=== PATIENT | male | born 1985 | race Two or more races ===

== ENCOUNTER 2025-02-02 16:17 | Emergency (ER) | payer OTHER, SELFPAY ==
--- NOTE | 2025-02-02 16:21 | EKG_ITS ---
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
[2025-02-02 16:52] VITALS: BP 128/92; PULSE 77; RESP 18; TEMP 36.7; O2SAT 100
--- NOTE | 2025-02-02 16:59 | XR_ITS ---
Examination: PA lateral chest 2 views TECHNIQUE: Upright PA and lateral chest 2 views Date and time: February 02, 2025 1732 hours Comparison January 2016 INDICATIONS: Chest pain 3 days FINDINGS: Normal heart size. Lungs are clear. The osseous structures are intact IMPRESSION: No active disease
--- NOTE | 2025-02-02 17:00 | PD.EDRME ---
Rapid Medical Screening Exam RME Arrival date/time: 02/02/25 16:17 39-year-old male presents emergency department today for a 2-day history of generalized weakness patient reports he moves his neck he has pain in his chest and his neck and reports generalized fatigue Chief Complaint: Chest Pain Vital signs: Vital Signs Temperature 98.1 F 02/02/25 16:52 Pulse Rate 77 02/02/25 16:52 Respiratory Rate 18 02/02/25 16:52 Blood Pressure 128/92 H 02/02/25 16:52 Pulse Oximetry (%) 100 02/02/25 16:52 Oxygen Delivery Method Room Air 02/02/25 16:52
[2025-02-02] MEDS: CYCLObenzaPRINE 5 MG TABLET 10 MG PO (17:06)
[2025-02-02] MEDS: IBUPROFEN TAB 600 MG TABLET PO (17:07)
[2025-02-02 17:26] LABS: Basophils # (Auto) 0.1 Thou/mm3 (0.0-0.2); Basophils % (Auto) 2 % (0-2.5); Eosinophils # (Auto) 0.8 Thou/mm3 (0.0-0.5); Eosinophils % (Auto) 10 % (0-10); Hematocrit 42.7 % (41.0-53.0); Hemoglobin 14.6 g/dL (13.5-16.0); Immature Granulocytes % (Auto) 0 % (0-0); Immature Granulocytes Auto 0.02 Thou/mm3 (0.00-0.00); Lymphocytes # (Auto) 2.3 Thou/mm3 (1.0-4.8); Lymphocytes % (Auto) 29 % (10-50); Mean Corpuscular HGB Conc 34.2 g/dl (31.0-37.0); Mean Corpuscular Hemoglobin 29.6 pg (25.0-35.0); Mean Corpuscular Volume 87 fL (80-100); Monocytes # (Auto) 0.7 Thou/mm3 (0.0-0.8); Monocytes % (Auto) 9 % (0-12); Neutrophils % (Auto) 50 % (37-80); Nucleated Red Blood Cell % 0 /100 WBC (0); Platelet Count 372 Thou/mm3 (140-440); RDW Standard Deviation 41.1 fL (35.1-43.9); Red Blood Count 4.93 Miln/mm3 (4.50-5.90)
[2025-02-02 17:34] LABS: B-Type Natriuretic Peptide < 20 pg/mL (0-100); Partial Thromboplastin Time 28.2 Seconds (22.0-36.0)
[2025-02-02 17:36] LABS: Alanine Aminotransferase 14 U/L (10-49); Albumin, Serum 4.3 gm/dL (3.5-5.0); Albumin/Globulin Ratio 1.4 (1.2-2.2); Alkaline Phosphatase 56 U/L (46-116); Anion Gap 8 (7-16); Aspartate Amino Transferase 22 U/L (0-34); BUN/Creatinine Ratio 9 Ratio (12-20); Bilirubin,Total 1.3 mg/dL (0.3-1.2); Blood Urea Nitrogen 10 mg/dL (9-23); Calcium 8.7 mg/dL (8.3-10.6); Calcium (Corrected) 8.7 mg/dL (8.5-10.1); Carbon Dioxide 27.3 mMol/L (20.0-31.0); Chloride 105 mMol/L (98-107); Creatinine (Component) 1.1 mg/dL (0.6-1.3); Glucose 76 mg/dL (74-106); Lipase 34 U/L (12-53); Magnesium 2.1 mg/dL (1.6-2.6); Osmolality,Calculated 277 (275-295); Sodium 140 mMol/L (136-145); Total Protein 7.3 gm/dL (5.7-8.2); Troponin I < 0.020 ng/mL (0.0-0.045); eGFR > 60 See Note
--- NOTE | 2025-02-02 19:28 | EDNOTE_ITS ---
ED Chest Pain RME/HPI General Chief Complaint: Chest Pain Stated Complaint: Chest pain Time Seen by Provider: 02/02/25 18:36 Arrival date/time: 02/02/25 16:17 RME / HPI RME / HPI narrative: 02/02/25 16:17 39-year-old male presents emergency department today for a 2-day history of generalized weakness patient reports he moves his neck he has pain in his chest and his neck and reports generalized fatigue ------- This section includes all my notes and documentations, including HPI, PE, and ED course. Diaz Ledezma MD HPI: 39yo male with no significant past medical history presents to the ED for a chief complaint of mid-chest pain x 2 days. Patient states he started having chest pain 2 days ago after he was digging a hole with his shovel, reporting his pain worsens when he takes a deep breath and certain movements. Patient denies any falls or injuries. Patient denies any shortness of breath, extremity pain or any other associated symptoms. No other complaints reported. ROS: All negative except as documented in HPI. Physical Exam: General: Alert and oriented. No acute distress when remaining still. Eyes: Conjunctivae and lids clear. ENT: No nasal congestion. Neck: Supple. Heart: RRR. Lungs: No respiratory distress. Good air movement. No rhonchi, wheezing, rales. Chest: Palpation of the anterior chest reproduces his pain. Skin: Warm and dry. Neuro: Alert and oriented X 3. I reviewed all diagnostic test results. My interpretation of the EKG is unremarkable. My interpretation of the chest x-ray is unremarkable. Blood tests are unremarkable. At this point, diagnoses include chest wall pain. Treatment here included Cyclobenzaprine and Ibuprofen. Significant improvement noted. Recommended supportive care and more outpatient cardiac workup. Based on my best medical judgment, made decision no further evaluation or treatment indicated at this time. Patient understands and agrees to the discharge instructions customized and printed, see below. Discharge instructions from Dr. Ledezma: 1. After extensive evaluation, there is no life-threatening condition. Such as heart attack or pneumothorax (collapsed lung). 2. Your pain is originating from the chest wall and not from an internal organ. The chest wall has many joints and muscles between the ribs. You probably tore small muscle fibers from recent traveling. 3. Apply ice or heat if helpful. Ibuprofen 600 mg every 6-8 hours today and tomorrow to decrease inflammation then as needed. Tylenol with codeine for more help with pain. 4. See a private doctor on 02/04/2025 for recheck. To make sure there is no serious underlying heart condition, ask to help you get more tests for your heart that cannot be done here in the ER. Such as Holter Monitor (cardiac monitoring at home from a day to even a month), heart stress test (on treadmill or with medication), echocardiogram (imaging of your heart structures), heart catherization (checking for blockages in your heart arteries), and a referral to see a Youth Development Professional. 5. Seek immediate medical care with worsening or with any concerns. Diaz Ledezma MD Related Data Previous Rx's ?Medication ?Instructions ?Recorded acetaminophen 300 mg-codeine 30 mg 2 tab PO Q8H PRN pa in #20 tabs 02/02/25 tablet ibuprofen 600 mg tablet 600 mg PO TID PRN fever or p ain 02/02/25 #30 tabs Allergies Allergy/AdvReac Type Severity Reaction Status Date / Time NKA* Allergy Uncoded 02/02/25 16:20 Review of Systems Review of Systems Systems Reviewed: All systems reviewed, normal except as documented Past Medical History Past Medical History CARDIAC: Negative Congestive Heart Failure RESPIRATORY: Negative Chronic Obstructive Pulmonary Disease (COPD) GENITOURINARY: Negative Renal Disease ENDOCRINE: Negative Diabetes Mellitus Type 1 or Diabetes Mellitus Type 2 Social History SMOKING STATUS: Never smoker ED Exam Narrative Physical exam: As noted in HPI. Course Course Course Narrative: CXR is ordered for determining the etiology of chest pain. Quality Measures none Orders Category Date Time Status Bedside Influenza A&B Antigen Test NOW Care 02/02/25 17:28 Completed EKG (ED ONLY) *Do not use* NOW Care 02/02/25 16:22 Completed EKG (ED Only) Stat Exams 02/02/25 16:21 Draft XR chest 2V Stat Exams 02/02/25 16:59 Completed B-Type Natriuretic Peptide Stat Lab 02/02/25 17:08 Completed CBC Stat Lab 02/02/25 17:08 Completed Comprehensive Metabolic Panel Stat Lab 02/02/25 17:08 Completed Drug Screen,Urine Stat Lab 02/02/25 16:59 Ordered Lipase Stat Lab 02/02/25 17:08 Completed Magnesium Stat Lab 02/02/25 17:08 Completed Partial Thromboplastin Time Stat Lab 02/02/25 17:08 Completed Prothrombin Time with INR Stat Lab 02/02/25 17:08 Completed Troponin I Stat Lab 02/02/25 17:08 Completed Urinalysis Stat Lab 02/02/25 16:59 Ordered CYCLObenzaPRINE [Flexeril] Med 02/02/25 16:59 Discontinued 10 mg PO X1 ONE Ibuprofen Tab [Motrin Tab] Med 02/02/25 16:59 Discontinued 600 mg PO X1 ONE Vital Signs Vital signs: Vital Signs Temperature 98.1 F 02/02/25 16:52 Pulse Rate 77 02/02/25 16:52 Respiratory Rate 18 02/02/25 16:52 Blood Pressure 128/92 H 02/02/25 16:52 Pulse Oximetry (%) 100 02/02/25 16:52 Oxygen Delivery Method Room Air 02/02/25 16:52 Chest Pain Patient data External records reviewed:: [facility] previous records (Per chart review, patient has no previous ED visits or admissions to this facility.) Clinical information provided by:: patient Social determinants that could affect healthcare access:: none Patient has the following chronic illnesses:: none How is presenting disease/condition affected by chronic disease/condition?: no chronic disease Evaluation data The following diagnostics were reviewed and interpreted by me:: lab results, radiology exam(s) and EKG tracing(s) (My interpretation of the EKG is: Sinus rhythm (76 bpm) with nonspecific ST-T changes. Diaz Ledezma MD) Lab and/or radiology exams considered but not ordered:: none Interpretation Summary: I reviewed all diagnostic test results. My interpretation of the EKG is unremarkable. My interpretation of the chest x-ray is unremarkable. Blood tests are unremarkable. Medications / Prescriptions Medications or Prescriptions considered but not ordered:: none Medication administrations:: Medication Administration History Discontinued Medications Cyclobenzaprine HCl (Cyclobenzaprine 5 Mg Tablet) 10 mg PO X1 ONE Stop: 02/02/25 17:00 Last Admin: 02/02/25 17:06 Dose: 10 mg Documented By: JALYN Ibuprofen (Ibuprofen Tab 600 Mg Tablet) 600 mg PO X1 ONE Stop: 02/02/25 17:00 Last Admin: 02/02/25 17:07 Dose: 600 mg Documented By: JALYN Cyclobenzaprine, Ibuprofen Consultations Consultation(s) initiated? (list below): No Diagnosis Chest Pain Differential Diagnosis: pneumothorax, stable angina, unstable angina pectoris, atypical chest pain, st elevation myocardial infarction and costochondritis Most likely diagnosis given after review of the tests above:: Chest wall pain Admission Indicated Admission indicated?: not indicated Explain why admission is indicated or not indicated:: With significant improvement, there was no indication for admission. Admission Request Was there a request for admission?: No Disposition Plan Disposition Plan: Discharge Discharge Attestation Discharge Attestation: The patient and all family members were given an opportunity to ask questions and understood the discharge instructions. Discharge instructions specifically effects, indications for sooner follow up or return to the emergency department, and the expected course of current diagnosis. Patient condition: Stable Discharge Plan Plan Patient Disposition: HOME (Self Care) Prescriptions/Referrals Prescriptions/Med Rec: New acetaminophen-codeine 300-30 mg tablet 2 tab PO Q8H MDD 6 PRN (Reason: pain) Qty: 20 0RF ibuprofen 600 mg tablet 600 mg PO TID PRN (Reason: fever or pain) Qty: 30 0RF Referrals: No Primary/Family,Physician [Primary Care Provider] - In 1 week Problem List Clinical Impression: Chest wall pain Patient/Caregiver Discharge Instructions Discharge Activity: activity as tolerated Education Materials: ED Chest Pain, Uncertain Cause, ED Chest Wall Strain (Child) Additional Instructions: Discharge instructions from Dr. Ledezma: 1. After extensive evaluation, there is no life-threatening condition.? Such as heart attack or pneumothorax (collapsed lung). 2. Your pain is originating from the chest wall and not from an internal organ.? The chest wall has many joints and muscles between the ribs. You probably tore small muscle fibers from recent traveling. 3. Apply ice or heat if helpful.? Ibuprofen 600 mg every 6-8 hours today and tomorrow to decrease inflammation then as needed. Tylenol with codeine for more help with pain. 4. See a private doctor on 02/04/2025 for recheck. To make sure there is no serious underlying heart condition, ask to help you get more tests for your heart that cannot be done here in the ER.? Such as Holter Monitor (cardiac monitoring at home from a day to even a month), heart stress test (on treadmill or with medication), echocardiogram (imaging of your heart st ructures), heart catherization (checking for blockages in your heart arteries), and a referral to see a Youth Development Professional.? 5. Seek immediate medical care with worsening or with any concerns.?? Print Language: Albanian Stand Alone Forms: Jayde Award Info., Patient Portal Info Letter
[2025-02-02 20:06] VITALS: RESP 18
== END 2025-02-02 20:06 | disposition home or self-care (01) ==
PROVIDERS: Nurse Practitioner Primary Care; Emergency Provider Emergency Medicine
DX: R07.89 Other chest pain (principal)
CPT/HCPCS: 36415; 71046; 80053; 80307; 81001; 83690; 83735; 83880; 84484; 85025; 85610; 85730; 87400; 87502; 93005; 99283; A9270